=== PATIENT | male | born 1970 | race Caucasian/White ===

== ENCOUNTER 2021-03-27 16:27 | Outpatient (REF) | payer OTHER, SELFPAY ==
--- NOTE | ~2021-03-27 | XR_ITS ---
EXAMINATION: XR knee RT 4V CLINICAL INFORMATION: Reason for Exam PAIN COMPARISON: None available at the time of this dictation. TECHNIQUE: frontal, lateral, tunnel and patella sunrise views FINDINGS: BONES: No fracture or dislocation is present. JOINTS: Narrowing of joint spaces and developed osteophytes from the edges of articular surfaces suggest degenerative osteoarthritis. SOFT TISSUE: Normal XR/XR knee RT 4V IMPRESSION: Mild to moderate degenerative osteoarthritis involving primarily medial compartment.
== END 2021-03-27 16:28 | disposition home or self-care (01) ==
LOC: HO.XRAY 16:27
PROVIDERS: PCP Internal Medicine; Visit Provider Internal Medicine
DX: M25.561 Pain in right knee (principal)
CPT/HCPCS: 73564

== ENCOUNTER 2021-06-25 16:47 | Emergency (ER) | payer OTHER, SELFPAY ==
--- NOTE | ~2021-06-25 | XR_ITS ---
EXAMINATION: XR CHEST CLINICAL INFORMATION: Chest pain. COMPARISON: Chest radiograph dated 08/09/2018. TECHNIQUE: Frontal view of the chest was obtained. FINDINGS: The lungs are clear. The cardiomediastinal silhouette is normal in size. There is no pleural effusion or pneumothorax. No acute osseous abnormality. XR/XR chest 1V IMPRESSION: No acute cardiopulmonary findings.
[2021-06-25 16:51] VITALS: BP 150/96; PULSE 76; RESP 18; TEMP 36.7; O2SAT 99; BMI 35.9
--- NOTE | 2021-06-25 16:55 | ECG_ITS ---
Test Reason : CHEST PAIN Blood Pressure : / mmHG Vent. Rate : 078 BPM Atrial Rate : 078 BPM P-R Int : 176 ms QRS Dur : 094 ms QT Int : 364 ms P-R-T Axes : 049 033 038 degrees QTc Int : 414 ms Sinus rhythm with occasional Premature ventricular complexes Otherwise normal ECG When compared with ECG of 23-MAY-2015 06:43, Premature ventricular complexes are now Present Referred By: Generic ED Physician Electronically Signed By:CHARLES GRIJALVA
--- NOTE | 2021-06-25 18:17 | ED_ITS ---
HPI - Chest Pain General Chief Complaint: Chest Pain Stated Complaint: Chest pain Time Seen by Provider: 06/25/21 17:42 Source: patient Mode of arrival: ambulatory History of Present Illness HPI narrative: 50-year-old male significant past medical history presented to the ED brought in from PCP office for intermittent episodes of substernal chest pressure that began on Wednesday lasting 10-30 minutes with associated diaphoresis, pain/stiffness, and lightheadedness/dizziness when has pain. Admits was at PCPs office today pertaining to symptoms, and walked over by PCP due to concern, denies symptoms at present/today. Denies associated SOB, fever, cough, LE edema, recent travel, chills, abdominal pain, vomiting MD complaint: chest pain and chest discomfort Related Data Allergies Allergy/AdvReac Type Severity Reaction Status Date / Time No Known Allergies Allergy Unverified 07/04/20 16:09 [No Known Allergies*] Review of Systems Review of Systems: Constitutional: No Fever, No Chills, No Fatigue, No Malaise, + diaphoresis ENT/Mouth: No Ear Pain, No Nasal Congestion, No sore throat, No Rhinorrhea, No Swallowing Difficulty, + jaw stiffness/pain Eyes: No Eye Pain, No Vision Changes Cardiovascular: + Chest Pain, No SOB, No Dyspnea on Exertion, No Edema, No Palpitations Respiratory: No Cough, No Dyspnea Gastrointestinal: + Nausea, No Vomiting, No Diarrhea, No Constipation, No Abdominal pain Genitourinary: No Dysuria, No Urinary Frequency, No Hematuria,No Flank Pain Musculoskeletal: No joint pain, No Myalgias, No Joint Swelling Skin: No Skin Lesions, No rash Neuro: No Weakness, No Numbness, No Paresthesias, + Dizziness (when gets chest pain), No Headache Yes all other systems are reviewed and are negative [facility] Past Medical History Attestation statement: The following information was validated with the patient. Medical History (Updated 06/25/21 @ 20:37 by JACQUE Brady) No known health problems Social History Social History Advance Directives: No Advance Directives Information Provided: No Physical Exam Vital Signs: Vital Signs: Last Vital Signs Temp 98.5 F 06/25/21 19:28 Pulse 66 06/25/21 19:28 Resp 16 06/25/21 19:28 BP 132/86 06/25/21 19:28 Pulse Ox 98 06/25/21 19:28 Body Mass Index 35.9 Const: General: cooperative, healthy appearing and no acute distress Orientation/consciousness: patient oriented x3 Limitations: no limitations HENMT: Head: Yes normal to inspection Ears: hearing grossly normal bilaterally General nose exam: Normal external nose present Face and sinus: Yes normal facial exam Eyes: General: appearance normal, both eyes and all related structures EOM: EOMs intact bilaterally Neck: Neck: Yes normal visual inspection and Yes no meningeal signs Resp: Effort & Inspection: normal respiratory effort Auscultation: clear to auscultation bilaterally, no rales, no rhonchi and no wheezes Cardio: Rate: regular rate Heart sounds: S1 normal heart sound present and S2 normal heart sound present GI: Inspection: Yes normal to inspection Palpation (GI): Soft to palpation, nontender, no guarding and not rigid Skin: Rashes: no rashes Wounds: no wounds Neuro: General: patient oriented x3, tone normal and no meningeal signs Gait exam (Neuro): Normal gait present Extrem: General: Yes normal to inspection, Yes no pedal edema and Yes no calf tenderness Course Course Course Narrative: -2032--mild leukocytosis of 11.4, potassium elevated to 5.6 > Kayexalate given -troponin negative, labs otherwise unremarkable XR chest 1V IMPRESSION: No acute cardiopulmonary findings. > results discussed with patient, patient agreeable to take Kayexalate in the ED however would like to be discharged after taking, and will follow up for repeat blood work outpatient. Discussed worrisome signs and symptoms and strict return precautions. 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 On exam VSS, NAD/well-appearing, nontoxic, lungs CTA, abdomen soft/nontender, no pedal edema/calf tenderness. Concern for ACS. Symptoms atypical for PE/CHF or pneumonia. Plan: EKG, labs, CXR, reassess Medical Records Data Attestation: I reviewed the patient's medical records. Lab Data Attestation: I reviewed the patient's lab results. Result diagrams: 06/25/21 19:34 06/25/21 19:34 Labs: Lab Results 06/25/21 06/25/21 06/25/21 Range/Units 19:34 19:34 19:34 WBC 11.4 H (4.8-10.8) X10*3/uL RBC 4.70 (4.60-5.80) X10*6/uL Hgb 15.2 (14.0-18.0) g/dl Hct 44.7 (42-52) % MCV 95.1 (80-98) fL MCH 32.3 (27.0-33.0) pg MCHC 34.0 (31.0-36.0) g/dl RDW 12.7 (11.0-16.0) % Plt Count 307 (160-400) X10*3/uL MPV 9.1 L (9.4-12.4) fL Immature Gran % (Auto) 0.4 (0.0-0.4) % Neut % (Auto) 52.2 (45-73) % Lymph % (Auto) 37.9 (20-40) % Fountain % (Auto) 7.1 (2-11) % Eos % (Auto) 2.0 (0-4) % Baso % (Auto) 0.4 (0-2) % Lymph # (Auto) 4.3 (1.2-4.9) X10*3/uL Fountain # (Auto) 0.8 (0.1-1.2) X10*3/uL Eos # (Auto) 0.2 (0.0-0.4) X10*3/uL Baso # (Auto) 0.1 (0.0-0.2) X10*3/uL Abs Immat Gran (auto) 0.04 H (0.00-0.03) X10*3/uL Absolute Neuts (auto) 5.9 (2.0-8.3) X10*3/uL Absolute Nucleated RBC 0.000 (0.0-0.012) X10*3/uL Nucleated RBC % (auto) 0.0 (0.0-0.2) /100WBC Sodium 143 (135-145) mmol/L Potassium 5.6 H (3.3-5.1) mmol/L Chloride 110 H (96-108) mmol/L Carbon Dioxide 25 (22-29) mmol/L Anion Gap 14 (12-20) BUN 14 (9-16) mg/dL Creatinine 1.14 (0.5-1.4) mg/dL Estim Creat Clear Calc 102.6 Estimated GFR > 60 Random Glucose 97 (60-115) mg/dL Calcium 10.5 H (8.4-10.2) mg/dL Magnesium 2.2 (1.6-2.6) mg/dL Total Bilirubin 0.9 (0.0-1.0) mg/dL Direct Bilirubin 0.3 (0.0-0.5) mg/dL AST 14 (5-37) U/L ALT 28 (0-40) U/L Alkaline Phosphatase 87 (39-117) U/L Troponin I High Sens (<3.5-35.0) ng/L Total Protein 6.6 (6.5-8.0) g/dL Albumin 4.2 (3.5-5.0) g/dL 06/25/21 Range/Units 19:34 WBC (4.8-10.8) X10*3/uL RBC (4.60-5.80) X10*6/uL Hgb (14.0-18.0) g/dl Hct (42-52) % MCV (80-98) fL MCH (27.0-33.0) pg MCHC (31.0-36.0) g/dl RDW (11.0-16.0) % Plt Count (160-400) X10*3/uL MPV (9.4-12.4) fL Immature Gran % (Auto) (0.0-0.4) % Neut % (Auto) (45-73) % Lymph % (Auto) (20-40) % Fountain % (Auto) (2-11) % Eos % (Auto) (0-4) % Baso % (Auto) (0-2) % Lymph # (Auto) (1.2-4.9) X10*3/uL Fountain # (Auto) (0.1-1.2) X10*3/uL Eos # (Auto) (0.0-0.4) X10*3/uL Baso # (Auto) (0.0-0.2) X10*3/uL Abs Immat Gran (auto) (0.00-0.03) X10*3/uL Absolute Neuts (auto) (2.0-8.3) X10*3/uL Absolute Nucleated RBC (0.0-0.012) X10*3/uL Nucleated RBC % (auto) (0.0-0.2) /100WBC Sodium (135-145) mmol/L Potassium (3.3-5.1) mmol/L Chloride (96-108) mmol/L Carbon Dioxide (22-29) mmol/L Anion Gap (12-20) BUN (9-16) mg/dL Creatinine (0.5-1.4) mg/dL Estim Creat Clear Calc Estimated GFR Random Glucose (60-115) mg/dL Calcium (8.4-10.2) mg/dL Magnesium (1.6-2.6) mg/dL Total Bilirubin (0.0-1.0) mg/dL Direct Bilirubin (0.0-0.5) mg/dL AST (5-37) U/L ALT (0-40) U/L Alkaline Phosphatase (39-117) U/L Troponin I High Sens < 3.5 (<3.5-35.0) ng/L Total Protein (6.5-8.0) g/dL Albumin (3.5-5.0) g/dL ECG Data ECG #1: Attestation: I personally reviewed and interpreted this ECG as follows: ECG interpretation date: 06/25/21 ECG interpretation time: 17:00 Interpretation: EKG normal sinus rhythm with occasional PVCs. Rate of 78. No STEMI/nonischemic Discharge Plan Discharge Clinical Impression: Atypical chest pain, Acute hyperkalemia Patient Disposition: Home, Self-Care Instructions: Chest Pain (ED) Additional Instructions: Your blood work is reassuring however does show an elevation in your potassium You also need to follow-up with your primary care doctor for repeat blood work in the next 2-3 days for repeat potassium Make sure youre staying hydrated at home You need to follow-up with cardiology If your symptoms persist or worsen, become unbearable/constant, you develop shortness of breath, palpitations, or fever please return to the ED immediately Referrals: Maikol De Dios MD [Primary Care Provider] - 2 days Yemi Lora MD [Physician] - 5 days
[2021-06-25 19:28] VITALS: BP 132/86; PULSE 66; RESP 16; TEMP 36.9; O2SAT 98
--- NOTE | 2021-06-25 19:35 | PC.NURSE ---
PATIENT LABS WAS DRAWN BY THIS PCT .
[2021-06-25 19:41] LABS: Basophils Absolute Auto 0.1 X10*3/uL (0.0-0.2); Basophils Percent Auto 0.4 % (0-2); Eosinophils Absolute Auto 0.2 X10*3/uL (0.0-0.4); Hematocrit 44.7 % (42-52); Hemoglobin 15.2 g/dl (14.0-18.0); Imm Gran Abs Auto 0.04 X10*3/uL (0.00-0.03); Imm Gran Pct Auto 0.4 % (0.0-0.4); Lymphocytes Absolute Auto 4.3 X10*3/uL (1.2-4.9); Lymphocytes Percent Auto 37.9 % (20-40); MANUAL DIFF FLAG NO; Mean Corpuscular Hemoglobin 32.3 pg (27.0-33.0); Mean Corpuscular Volume 95.1 fL (80-98); Mean Platelet Volume 9.1 fL (9.4-12.4); Monocytes Absolute Auto 0.8 X10*3/uL (0.1-1.2); Monocytes Percent Auto 7.1 % (2-11); Neutrophils Absolute Auto 5.9 X10*3/uL (2.0-8.3); Neutrophils Percent Auto 52.2 % (45-73); Platelet Count 307 X10*3/uL (160-400); Red Cell Distribution Width 12.7 % (11.0-16.0); White Blood Count 11.4 X10*3/uL (4.8-10.8)
[2021-06-25 19:55] LABS: Magnesium 2.2 mg/dL (1.6-2.6)
[2021-06-25 19:57] LABS: Alanine Aminotransferase 28 U/L (0-40); Albumin Level 4.2 g/dL (3.5-5.0); Alkaline Phosphatase 87 U/L (39-117); Anion Gap 14 (12-20); Aspartate Amino Transferase 14 U/L (5-37); Bilirubin Direct 0.3 mg/dL (0.0-0.5); Bilirubin Total 0.9 mg/dL (0.0-1.0); Blood Urea Nitrogen 14 mg/dL (9-16); Calcium 10.5 mg/dL (8.4-10.2); Carbon Dioxide 25 mmol/L (22-29); Chloride 110 mmol/L (96-108); Creatinine Clr Calc Pharmacy 102.6; Estimated Glomerular Filt Rate > 60; Glucose Random 97 mg/dL (60-115); Potassium 5.6 mmol/L (3.3-5.1); Sodium 143 mmol/L (135-145); Total Protein 6.6 g/dL (6.5-8.0)
[2021-06-25 20:00] LABS: Troponin-I High Sensitivity < 3.5 ng/L (<3.5-35.0)
[2021-06-25] MEDS: Sodium Polystyrene Sulfon/Sorb 15 GM/60 ML ORAL.SUSP 45 GM PO (21:23)
--- NOTE | 2021-06-25 21:28 | PC.NURSE ---
Notified provider pt is willing to take po medication and go home to have labs out patient. Provider is aware.
[2021-06-25 21:42] VITALS: BP 125/86; PULSE 78; RESP 16; TEMP 36.6; O2SAT 98
[2021-06-25 21:49] VITALS: BP 129/73; PULSE 67; RESP 16; TEMP 36.7; O2SAT 99
== END 2021-06-25 22:18 | disposition home or self-care (01) ==
PROVIDERS: Physician Assistant; Emergency Provider Internal Medicine; PCP Internal Medicine
DX: R07.89 Other chest pain (principal); E87.5 Hyperkalemia; Z79.899 Other long term (current) drug therapy
CPT/HCPCS: 36415; 71045; 80048; 80076; 83735; 84484; 85025; 93005; 96360; 99284

== ENCOUNTER 2021-06-27 06:33 | Outpatient (REF) | payer OTHER, SELFPAY ==
[2021-06-27 11:58] LABS: Anion Gap 12 (12-20); Blood Urea Nitrogen 16 mg/dL (9-16); Calcium 10.3 mg/dL (8.4-10.2); Carbon Dioxide 24 mmol/L (22-29); Chloride 110 mmol/L (96-108); Estimated Glomerular Filt Rate > 60; Glucose Random 87 mg/dL (60-115); Potassium 4.3 mmol/L (3.3-5.1); Sodium 142 mmol/L (135-145)
== END 2021-06-27 06:34 | disposition home or self-care (01) ==
LOC: HO.HMGCLDS 06:33
PROVIDERS: PCP Internal Medicine; Visit Provider Internal Medicine
DX: Z00.00 Encounter for general adult medical examination without abnormal findings (principal)
CPT/HCPCS: 36415; 80048

== ENCOUNTER → 2021-07-02 12:50 | Outpatient (BNVA) | payer OTHER, SELFPAY | PROVIDERS: PCP Internal Medicine; Referring Provider Internal Medicine; Visit Provider Internal Medicine ==

== ENCOUNTER → 2021-08-06 09:30 | Outpatient (REF) | payer OTHER, SELFPAY ==
--- NOTE | 2021-08-06 09:34 | CA_ITS ---
Acquisition Time: 2021-08-06 10:27:43 Total Exercise Time: 00:07:59 Test Indications: Chest Pain Medications: NONE Protocol: CARLOS Max HR: 146 BPM 86% of Pred: 169 BPM Max BP: 162/084 mmHG Max Work Load: 10.3 METS Exercise stress test with exercise 7 min 59 sec of Carlos protocol, achieving 86% MPHR and 10.3 METs, with mild sob, no chest discomfort, without arrythmia, with normotensive response to exercise, without EKG changes meeting criteria for ischemia. Test reviewed with Dr Lora. Referred By: Yemi Lora Overread By: MADELYN ANDREA
--- NOTE | 2021-08-06 09:34 | CA_ITS ---
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 The calculated ejection fraction is 64% by biplane method. - No obvious valvular pathology seen on this study. Findings Left Ventricle Normal left ventricular cavity size. There is mildly increased left ventricular wall thickness. The left ventricular systolic function is normal. The calculated ejection fraction is 64% by biplane method. There is no evidence of regional wall motion abnormalities. Diastolic function is normal for age. Right Ventricle Normal right ventricular cavity size and systolic function. Atria Both atria are normal in size. Aortic Valve There is a normal trileaflet aortic valve. There is no aortic valve stenosis. There is no aortic valve regurgitation. Mitral Valve The mitral valve appears normal. There is no mitral valve regurgitation. There is no mitral valve stenosis. Pulmonic Valve The pulmonic valve was not well visualized. There is trace pulmonic valve regurgitation. Tricuspid Valve Normal tricuspid valve structure. There is trace tricuspid valve regurgitation. The pulmonary artery systolic pressure is normal. Great Vessels Top normal ascending aortic size at 4 cm. Venous The inferior vena cava is normal in size and collapses greater than 50% with inspiration. Pericardium/Pleural There is no evidence of pericardial effusion. Prior Study Comparison No prior study available for comparison. Recommendations, Care & Conclusions No obvious valvular pathology seen on this study. Measurements 2D Linear Measurements IVSd: 1.10 0.6-0.9/0.6-1.0 cm LVIDd: 4.68 3.9-5.3/4.2-5.9 cm LVIDd Index: 1.95 2.4-3.2/2.2-3.1 cm/m2 LVIDs: 3.31 2.0-3.6 cm LVPWd: 1.13 0.7-1.1 cm Ao Root: 3.70 2.1-3.5 cm LA Diam: 3.60 2.7-3.8/3.0-4.0 cm LAIDs Index: 1.50 1.5-2.3 cm/m2 LV Mass: 236.53 67-162/88-224 g LV Mass Index: 98.56 43-95/49-115 g/m2 LVOT Diam: 2.40 3.0+(-)1.3 cm 2D Systolic Function EF 4C: 52.80 >55% EF 2C: 71.30 >55% EF BiP: 63.60 >55% Mitral Valve MV Pk E: 0.52 MV PK A: 0.51 MV Decel Time: 162.00 E/A: 1.00 E'Lateral: 11.40 E'Medial: 5.55 E/E' Med: 9.40 E/E' Lat: 4.60 PHT: 48.00 MVA PHT: 4.58 Decel [place]: 3.21 Aortic Valve AoV Pk Balbir: 1.14 AoV Pk Grad: 5.00 LVOT LVOT Pk Balbir: 1.14 LVOT Mn Balbir: 0.81 LVOT VTI: 0.25 LVOT Pk Grad: 5.00 LVOT Mn Grad: 3.00 LVOT Diam: 2.40 LVOT Area: 4.52 Diastolic Function MV Pk E: 0.52 MV Pk A: 0.51 E/A: 1.00 E'Medial: 5.55 E/E' Med: 9.40 E' Laterial: 11.40 E/E' Lat: 4.60 Right Ventricle TAPSE (mm): 1.88 Tricuspid Valve RA Press: 3.00 Great Vessels Aorta Ao Root-2D: 3.70 2.0-3.7 cm Ao Asc: 4.00 2.1-3.4 cm Updated in Other Vendor System with Status of Final Yemi Lora MD electronically signed on 08/07/2021 11:30:42 AM with status of Final
== END ==
LOC: HO.CARD 09:30
PROVIDERS: PCP Internal Medicine; Visit Provider Internal Medicine
DX: R07.2 Precordial pain (principal)
CPT/HCPCS: 93017; 93306

== ENCOUNTER → 2021-08-12 12:40 | Outpatient (BNVA) | payer OTHER, SELFPAY | PROVIDERS: PCP Internal Medicine; Referring Provider Internal Medicine; Visit Provider Internal Medicine ==

== ENCOUNTER 2022-02-10 07:24 | Outpatient (REF) | payer OTHER, SELFPAY ==
--- NOTE | ~2022-02-10 | XR_ITS ---
EXAMINATION: XR KNEES, STANDING AP XR KNEE, RIGHT CLINICAL INFORMATION: Knee pain COMPARISON: Radiographs right knee 03/27/2021. TECHNIQUE: Standing AP view of both knees is performed along with lateral and axial patella views of the right knee. FINDINGS: Right: There is narrowing medial knee joint compartment with small osteophytes medial femoral condyle and medial tibial plateau. No erosive change or chondrocalcinosis. There is small to moderate suprapatellar effusion. Hoffa's fat pad appears normal. Axial view patella shows no definite lateralization or tilting. No fracture or dislocation or destructive process. Left: No definite joint narrowing. No erosive change or chondrocalcinosis. Normal bony mineralization. XR/XR knee standing BI IMPRESSION: Right: -Degenerative changes medial knee joint compartment. -Small to moderate suprapatellar effusion. Left: -No definite joint narrowing. No erosive change.
--- NOTE | ~2022-02-10 | XR_ITS ---
EXAMINATION: XR KNEES, STANDING AP XR KNEE, RIGHT CLINICAL INFORMATION: Knee pain COMPARISON: Radiographs right knee 03/27/2021. TECHNIQUE: Standing AP view of both knees is performed along with lateral and axial patella views of the right knee. FINDINGS: Right: There is narrowing medial knee joint compartment with small osteophytes medial femoral condyle and medial tibial plateau. No erosive change or chondrocalcinosis. There is small to moderate suprapatellar effusion. Hoffa's fat pad appears normal. Axial view patella shows no definite lateralization or tilting. No fracture or dislocation or destructive process. Left: No definite joint narrowing. No erosive change or chondrocalcinosis. Normal bony mineralization. XR/XR knee RT 2V IMPRESSION: Right: -Degenerative changes medial knee joint compartment. -Small to moderate suprapatellar effusion. Left: -No definite joint narrowing. No erosive change.
== END 2022-02-10 07:25 | disposition home or self-care (01) ==
LOC: HO.HOSX 07:24
PROVIDERS: Visit Provider Physician Assistant
DX: M17.11 Unilateral primary osteoarthritis, right knee (principal)
CPT/HCPCS: 73560; 73565; J1040

== ENCOUNTER 2022-02-25 15:22 | Outpatient (REF) | payer OTHER, SELFPAY ==
--- NOTE | ~2022-02-25 | XR_ITS ---
EXAMINATION: XR CHEST CLINICAL INFORMATION: Cough. Rule out pneumonia. COMPARISON: 06/25/2021 and 08/09/2018. TECHNIQUE: 2 views of the chest were obtained. FINDINGS: There is no evidence of acute parenchymal disease, pneumothorax, or pleural effusion. Heart normal size. No evidence of pulmonary edema. On one AP view there is a question of retrocardiac density however on the second image this is shown to have been superimposition of structures and not a true region of consolidation. XR/XR chest 2V IMPRESSION: No acute disease.
[2022-02-25 16:27] LABS: Influenza A PCR POSITIVE (Negative); Influenza B PCR NEGATIVE (Negative); Resp Syncy Virus RNA Qual PCR NEGATIVE (Negative); SARS COV2 PCR INHOUSE NEGATIVE (Negative)
== END 2022-02-25 15:23 | disposition home or self-care (01) ==
LOC: HO.XRAY 15:22
PROVIDERS: PCP Internal Medicine; Visit Provider Internal Medicine
DX: Z20.822 Contact with and (suspected) exposure to COVID-19 (principal); R05.9 Cough, unspecified
CPT/HCPCS: 0241U; 71046

== ENCOUNTER 2023-03-12 06:39 | Outpatient (REF) | payer BC, SELFPAY ==
[2023-03-12 06:51] LABS: MANUAL DIFF FLAG NO
[2023-03-12 07:25] LABS: Basophils Absolute Auto 0.1 X10*3/uL (0.0-0.2); Basophils Percent Auto 0.8 % (0-2); Eosinophils Absolute Auto 0.2 X10*3/uL (0.0-0.4); Eosinophils Percent Auto 1.9 % (0-4); Hematocrit 48.1 % (42.0-52.0); Hemoglobin 16.1 g/dl (14.0-18.0); Imm Gran Abs Auto 0.05 X10*3/uL (0.00-0.03); Imm Gran Pct Auto 0.5 % (0.0-0.4); Lymphocytes Absolute Auto 4.1 X10*3/uL (1.2-4.9); Lymphocytes Percent Auto 39.9 % (20-40); Mean Corpuscular HGB Conc 33.5 g/dl (31.0-36.0); Mean Corpuscular Hemoglobin 31.7 pg (27.0-33.0); Mean Corpuscular Volume 94.7 fL (80.0-98.0); Mean Platelet Volume 8.9 fL (9.4-12.4); Monocytes Absolute Auto 0.8 X10*3/uL (0.1-1.2); Monocytes Percent Auto 7.4 % (2-11); Neutrophils Absolute Auto 5.1 x10*3/uL (2.0-8.3); Neutrophils Percent Auto 49.5 % (45-73); Platelet Count 322 X10*3/uL (160-400); Red Blood Count 5.08 X10*6/uL (4.60-5.80); Red Cell Distribution Width 12.2 % (11.0-16.0); White Blood Count 10.2 X10*3/uL (4.8-10.8)
[2023-03-12 08:08] LABS: Alanine Aminotransferase 49 U/L (0-40); Albumin Level 4.1 g/dL (3.5-5.0); Alkaline Phosphatase 108 U/L (39-117); Anion Gap 11 (12-20); Aspartate Amino Transferase 19 U/L (5-37); Bilirubin Total 0.7 mg/dL (0.0-1.0); Blood Urea Nitrogen 17 mg/dL (9-16); Calcium 10.1 mg/dL (8.4-10.2); Carbon Dioxide 28 mmol/L (22-29); Chloride 108 mmol/L (96-108); Cholesterol 204 mg/dL; Estimated Glomerular Filt Rate > 60; Glucose Fasting 95 mg/dL (60-99); HDL Cholesterol 37 mg/dL; LDL Cholesterol Calculated 123 mg/dl; Potassium 5.1 mmol/L (3.3-5.1); Sodium 142 mmol/L (135-145); Total Protein 6.6 g/dL (6.5-8.0); Triglycerides 224 mg/dL
[2023-03-12 08:11] LABS: Prostate Specific Antigen 0.33 ng/mL (<0.05-4.0)
[2023-03-12 08:54] LABS: Appearance Urine Clear; Color Urine Yellow; Glucose Urine UA Negative (Negative); Leukocyte Esterase Urine Trace (Negative); Nitrite Urine Negative (Negative); PH 5.5 (5.0-9.0); Specific Gravity - Urine 1.025 (1.005-1.025); UMIC TRIGGER UA YES; Urine Blood Negative (Negative); Urine Ketones Negative (Negative); Urine Protein Negative (Neg-Trace)
[2023-03-12 09:02] LABS: Bacteria Urine 1+ (None Seen); Hyaline Casts Urine 0-2 /LPF (0-2); RBC Urine 0-2 /HPF (0-2); WBC Urine 0-5 /HPF (0-5)
== END 2023-03-12 06:40 | disposition home or self-care (01) ==
LOC: HO.LAB 06:39
PROVIDERS: PCP Internal Medicine; Visit Provider Internal Medicine
DX: I10 Essential (primary) hypertension (principal); R00.2 Palpitations; R31.9 Hematuria, unspecified; Z12.5 Encounter for screening for malignant neoplasm of prostate
CPT/HCPCS: 36415; 80053; 80061; 81001; 84153; 85025

== ENCOUNTER 2023-07-02 14:46 | Outpatient (AMB) | payer OTHER, SELFPAY ==
--- NOTE | 2023-07-02 08:51 | MHC.OFFVIS ---
Intake Intake Visit Reasons: LDCT SD Allergies No Known Allergies [No Known Allergies*] Allergy (Verified 08/12/21 12:50) HPI LDCT SD HPI Details Initial visit for this 52yo smoker with a 50PYH. Patient has been smoking since age 11 for 41 years. Max 1.5ppd now at 1ppd. . Denies marijuana use. Notes social second hand smoke exposure. Denies exposure to chemicals or substances like asbestos. . Denies known family history of lung cancer. Denies personal history of cancers. . Denies chest CT in last year. Prior chest CT done 01/30/15 noted numerous stable nodules . Denies recent travel outside the [place]. Denies recent respiratory illness or recent hospitalization for respiratory issues. Reports testing positive for COVID 2 years ago. Admits receiving COVID Vaccine. x 3. . Denies fever, chills, new/worsening cough, hemoptysis, hoarseness or dysphagia. Denies significant chest pain, significant dyspnea or unintentional weight loss. Patient Lung Cancer Screening Questionnaire reviewed with patient by provider. . Shared Decision Making Completed. Patient meets criteria. Discussed in detail with patient, the risk vs benefit of LDCT screening. Patient consents to proceed with scan. Discussed smoking cessation. [facility] Medical History (Updated 07/02/23 @ 14:59 by Grace Xiao PA-C) Obesity Tubular adenoma of colon Nicotine dependence, cigarettes, uncomplicated Surgical History (Updated 07/02/23 @ 15:01 by Grace Xiao PA-C) History of cystoscopy History of surgery on left wrist History of endoscopy History of colonoscopy History of repair of hiatal hernia Family History Father No problems noted. Mother No problems noted. 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 - Patient meets criteria for LDCT for lung cancer screening purposes and is asymptomatic. - Smoking cessation counseling offered. Patients can always call [phone]. - Will arrange for a LDCT scan of the chest for screening purposes at [facility]. - Risks, benefits, and alternatives were discussed in detail and the patient agrees to proceed. - Risks discussed include but are not limited to: radiation exposure, anxiety during testing and while awaiting results, false negatives, false positives and possibility of additional intervention such as further imaging or surgical procedures for benign disease. - Benefits are obviously detection of lung cancer at an early stage which can lead to improved outcomes. - Discussed the importance of screening program compliance with adherence to yearly LDCT scan as scheduled - or sooner interval scans for personalized screening regimen. - Discussed follow up plan. Our office will send a letter discussing results and if needed set up phone call and office visit based on CT findings. - Patient educated on results categorization and the management decisions for suspicious findings potentially found on the screening LDCT scan. Any patient with a Lung RADS score of 3 or 4 will be reviewed by a multidisciplinary team at [facility] to form a plan of action in regards to scan findings. - If further work up is warranted for a suspicious lung finding this will be followed by the Lung Cancer Screening program in conjunction with the Thoracic Surgery Department at [facility]. - A copy of the office note and LDCT will be sent to the patient's PCP - as well as documentation on any associated further plans of care. - Incidental findings on LDCT are the PCP's responsibility. These findings are indicated with an S finding on the LDCT Assessment. A note discussing the findings will be sent to the PCP who is then responsible for further management. - All questions answered.? Coding Level of Care Code Lung Cancer Screening [id number] Diagnoses Nicotine dependence, cigarettes, uncomplicated F17.210
== END 2023-07-02 15:04 | disposition home or self-care (01) ==
PROVIDERS: PCP Internal Medicine; Visit Provider Physician Assistant Medical
DX: F17.210 Nicotine dependence, cigarettes, uncomplicated (principal)
CPT/HCPCS: G0296

== ENCOUNTER 2023-07-02 15:06 | Outpatient (REF) | payer OTHER, SELFPAY ==
--- NOTE | ~2023-07-02 | CT_ITS ---
EXAMINATION: CT CHEST SCREENING CLINICAL INFORMATION: Current smoker. 41 pack year history. COMPARISON: Previous chest CT January 2015 TECHNIQUE: Multidetector volumetric CT imaging of the chest is performed without contrast using low dose technique. Additional 2D coronal and sagittal reformatted images and axial 3D maximum intensity projection (MIP) images are generated on the CT workstation. This CT examination was performed using dose optimization techniques as appropriate, variously including the following: *Automated exposure control *Adjustment of mA and/or kV according to patient size (this includes techniques or standardized protocols for targeted exams where dose is matched to indication/reason for exam; i.e. extremities or head) *Use of iterative reconstruction technique DLP: 122 mGy-cm FINDINGS: LUNGS: Mild paraseptal emphysema. 3 mm right upper lobe nodule axial image 117 series 6. 3 mm right upper lobe nodule axial image 119 series 6. 4 mm peripheral or subpleural right upper lobe nodule adjacent to the major fissure axial image 237 series 6. 1 cm peripheral or subpleural right lower lobe nodule adjacent to the major fissure axial image 249 series 6. 4 mm left upper lobe nodule axial image 273 series 6. 5 mm right middle lobe nodule adjacent to the minor fissure axial image 285 series 6. 4 mm right middle lobe nodule axial image 301 series 6. 4 mm left lower lobe nodule axial image 309 and 313 series 6. 3 mm peripheral or subpleural right lower lobe nodule axial image 323 series 6. 3 mm peripheral or subpleural right middle lobe nodule axial image 346 series 6. These are all stable from [address] No endobronchial or endotracheal lesion. MEDIASTINUM: The mediastinum is normal. CORONARY ARTERY CALCIFICATION: None visualized on this study. PLEURA: There is no pleural effusion. No pleural mass or thickening. AXILLA: No lymphadenopathy. UPPER ABDOMEN: Unremarkable OSSEOUS STRUCTURES: Unremarkable. CT/CT lung screening IMPRESSION: Mild emphysema. Stable pulmonary nodules from [address] ASSESSMENT: Lung-RADS category 2: Benign RECOMMENDATION: Annual low-dose chest CT follow-up recommended.
== END 2023-07-02 15:07 | disposition home or self-care (01) ==
LOC: HO.CT 15:06
PROVIDERS: Visit Provider Physician Assistant Medical
DX: Z12.2 Encounter for screening for malignant neoplasm of respiratory organs (principal); F17.210 Nicotine dependence, cigarettes, uncomplicated
CPT/HCPCS: 71271; G0296

== ENCOUNTER 2025-03-14 11:32 | Outpatient (AMB) | payer OTHER, SELFPAY ==
--- NOTE | 2025-03-14 10:20 | MHC.PC.OV ---
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 Required: No Accompanied by: Self / Same As Patient Allergies No Known Allergies [No Known Allergies*] Allergy (Verified 03/14/25 11:39) Medication List - Last Reconciled 03/14/25 by Pradeep Loco MD No Known Home Meds Tobacco use date assessed: 03/14/25 Dental Screening Dental Screen Date: 03/14/25 Did you have a dental visit in the last 12 months?: Yes Did you have a dental problem in the last 6 months where you did not have access to dental care?: No [facility] Medical History Obesity Tubular adenoma of colon Nicotine dependence, cigarettes, uncomplicated Surgical History History of cystoscopy History of surgery on left wrist History of endoscopy History of colonoscopy (~10/05/18) History of repair of hiatal hernia Family History Father No problems noted. Mother No problems noted. 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 1. Little interest or pleasure in doing things: not at all 2. Feeling down, depressed, or hopeless: not at all 3. Trouble falling or staying asleep, or sleeping too much: not at all 4. Feeling tired or having little energy: not at all 5. Poor appetite or overeating: not at all 6. Feeling bad about yourself - or that you are a failure or have let yourself or your family down: not at all 7. Trouble concentrating on things, such as reading the newspaper or watching television: not at all 8. Moving or speaking so slowly that other people could have noticed. Or the opposite - being so fidgety or restless that you have been moving around a lot more than usual: not at all 9. Thoughts that you would be better off or of hurting yourself in some way: not at all Total score: 0 Depression Screening Interpretation: Negative Depression Screening Done: Yes Source: Developed by Drs. Anatoly Carvalho, Myra Tiwari, Alireza Sexton and colleagues, with an educational david from [employer]. Thrive Questionnaire Date Thrive assessed: 03/14/25 I am a: Patient Within the past 12 months, did the food you bought not last and you didn't have the money to get more?: Never true Within the past 12 months, did you worry whether your food would run out before you got money to buy more?: Never true Do you have trouble paying for medicines?: No Do you have trouble getting transportation to medical appointments?: No Do you have trouble paying your heating and electricity bill?: No Do you have trouble taking care of your child, family member or friend?: No Do you have trouble with day-to-day activities such as bathing, preparing meals, shopping, managing finances, etc.?: No Are you currently unemployed and looking for a job?: No Are you interested in more education?: No Currently or been in a relationship where the following occur: No concerns reported THRIVE Score: 0 AUDIT C Alcohol Use Questionnaire (AUDIT-C) 1. How often do you have a drink containing alcohol?: Monthly or less 2. How many drinks containing alcohol do you have on a typical day when you are drinking?: 1 or 2 3. How often do you have six or more drinks on one occasion?: Less than monthly Total Score: 2 LEÓN-7 AMB Questionnaire LEÓN-7 Date LEÓN - 7 assessed: 03/14/25 Feeling nervous, anxious, or on edge: 0 = Not at all Not being able to stop or control worryin = Not at all Worrying too much about different things: 0 = Not at all Trouble relaxin = Not at all Being so restless that it is hard to sit still: 0 = Not at all Becoming easily annoyed or irritable: 0 = Not at all Feeling afraid as if something awful might happen: 0 = Not at all Total LEÓN-7 score (0-4 normal; 5-9 mild; 10-14 moderate; 15-21 severe): 0 Source: Developed by Drs. Anatoly Carvalho, Myra Tiwari, Alireza Sexton and colleagues, with an educational david from [employer]. Physical exam (Primary Care) Vital Signs: Last Vital Signs Temp 97.2 F 03/14/25 11:36 Pulse 93 03/14/25 11:36 BP 130/80 03/14/25 11:36 Pulse Ox 98 03/14/25 11:36 Oxygen Delivery Method Room Air 03/14/25 11:36 Care Plan Goal for BP management: BP is in range BMI result Body Mass Index 37.4 BMI Assessment/Plan discussion: High (One pound per week weight loss suggested.) BMI High, discussed plan: lifestyle, weight reduction and dietary Tobacco/Smoking Status: Tobacco use Status Tobacco use date assessed 03/14/25 03/14/25 11:41 Patient Tobacco Use Status Current everyday Tobacco 03/14/25 10:20 e-Cigarette/Vaping Use Currently Using 03/14/25 11:41 Are you ready to quit: No Tobacco cessation counseling provided: No PHQ-9: PHQ-9 Score PHQ-9: Total score 0 03/14/25 11:57 Depression Screening Interpretation: Negative Thrive Assessment: Date of Thrive Assessment Date Thrive assessed 03/14/25 03/14/25 11:41 Currently or been in a relationship where the following occur: No concerns reported Coding Level of Care Code New Pt Level 4 (41763) Complex EM visit Add On G2211 Diagnoses Obesity E66.9 Assessment & Plan Assessment & Plan (1) Obesity: Code(s): E66.9 - Obesity, unspecified Category: Medical Plan: Counselling on importance of diet and exercise. Plan History of Present Illness - The patient is a 54-year-old male presenting with concerns about hair loss. - Reports hair loss began approximately three months ago, primarily affecting a large bald spot on the back of the head. - No prior treatment has been undertaken. - The patient is requesting a referral for a colonoscopy. - Has not had a colonoscopy in several years and is due for another. - Prefers Dr. Hebert for the procedure. 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 - Substance Use: Smokes one pack of cigarettes daily; consumes alcohol once a week, primarily on Wednesday nights. - Mental Health: Patient reports feeling stressed regularly, with no significant mental stressors noted beyond normal day-to-day stress. - Sleep: Reports issues with sleeping at night. Review of Systems - Dermatologic: Reports hair loss, specifically bald spots developing over the past three months. - Ophthalmologic: Reports difficulty with reading and sometimes while driving; plans to see an eye doctor. - Gastrointestinal: Denies any abdominal pain. - Neurologic: Denies any unusual stress beyond regular day-to-day activities. - Respiratory: Denies any current respiratory symptoms but acknowledges past history of smoking. Physical Exam General: Cooperative and healthy appearing Nutritional Appearance: Well nourished Orientation/consciousness: Patient oriented x3 Limitations: No limitations Head: Normal to inspection General: Appearance normal, both eyes and all related structures Neck: Normal visual inspection Chest: Normal palpation of entire chest wall Respiratory: Smokes every day, pack a day ormal respiratory effort Neurology: Patient oriented x3 Results - Imaging: Patient recalls having a prior CT scan but details and results were not discussed. Plan 1. Alopecia Areata - Discussed the potential stress-related cause of hair loss. - Offered a referral to a religious assistant for possible steroid treatment, which the patient declined. - Advised that the condition often improves without intervention. 2. Tobacco Use Disorder - Discussed risks associated with smoking and encouraged cessation. - Offered support and resources for smoking cessation when the patient is ready. - Patient is aware of the health risks and expresses difficulty in quitting. Discussion Notes I discussed with the patient the likely stress-related cause of his alopecia areata and reassured him that the condition often resolves on its own. I offered a referral to a religious assistant for steroid injections if desired, but the patient declined. We also discussed his tobacco use, and I emphasized the health risks of smoking. I offered support and resources for smoking cessation, explaining that I would assist him whenever he decided to quit. For his referral, I will send it to Dr. Hebert for a colonoscopy as requested. I also noted that he should undergo fasting blood work as part of routine care. Patient Instructions - Follow up with Dr. Hebert for the scheduled colonoscopy. - Complete the fasting blood work as ordered. - Consider seeing a religious assistant if the hair loss does not improve. - Reduce smoking and consider quitting; I'm here to help when you're ready. - Continue routine eye care and schedule a visit with an eye doctor for vision concerns. Orders: Orders Lipid Panel Today E66.9 - Obesity, unspecified Liver Panel Today E66.9 - Obesity, unspecified Basic Metabolic Panel Today E66.9 - Obesity, unspecified Complete Blood Count no Diff Today E66.9 - Obesity, unspecified Thyroid Stimulating Hormone Today E66.9 - Obesity, unspecified UA and rflx microscopic Today E66.9 - Obesity, unspecified Referrals Gastroenterology Referral Z12.11 - Encounter for screening for malignant neoplasm of colon
[2025-03-14 11:36] VITALS: BP 130/80; PULSE 93; TEMP 36.2; O2SAT 98; BMI 37.4
== END 2025-03-14 11:58 | disposition home or self-care (01) ==
LOC: HO.HMCHD 11:32
PROVIDERS: PCP Internal Medicine; Visit Provider Internal Medicine
DX: E66.9 Obesity, unspecified (principal)

== ENCOUNTER → 2025-03-14 11:32 | Outpatient (BNVA) | payer OTHER, SELFPAY | PROVIDERS: PCP Internal Medicine; Visit Provider Internal Medicine ==

== ENCOUNTER 2025-03-20 06:06 | Outpatient (REF) | payer OTHER, SELFPAY ==
[2025-03-20 07:27] LABS: Hematocrit 48.2 % (42.0-52.0); Hemoglobin 16.1 g/dl (14.0-18.0); Mean Corpuscular HGB Conc 33.4 g/dl (31.0-36.0); Mean Corpuscular Hemoglobin 31.6 pg (27.0-33.0); Mean Corpuscular Volume 94.5 fL (80.0-98.0); Mean Platelet Volume 9.2 fL (9.4-12.4); Platelet Count 313 X10*3/uL (160-400); Red Cell Distribution Width 12.4 % (11.0-16.0); White Blood Count 8.2 X10*3/uL (4.8-10.8)
[2025-03-20 07:37] LABS: Appearance Urine Cloudy; Color Urine Yellow; Glucose Urine UA Negative (Negative); Leukocyte Esterase Urine Negative (Negative); Nitrite Urine Negative (Negative); PH 5.5 (5.0-9.0); Specific Gravity - Urine 1.025 (1.005-1.025); Urine Blood Negative (Negative); Urine Ketones Negative (Negative); Urine Protein Negative (Neg-Trace)
[2025-03-20 07:52] LABS: Alanine Aminotransferase 56 U/L (0-40); Albumin Level 4.2 g/dL (3.5-5.0); Alkaline Phosphatase 110 U/L (39-117); Anion Gap 10 (12-20); Aspartate Amino Transferase 27 U/L (5-37); Bilirubin Direct 0.2 mg/dL (0.0-0.5); Bilirubin Total 0.6 mg/dL (0.0-1.0); Blood Urea Nitrogen 15 mg/dL (9-16); Calcium 10.1 mg/dL (8.4-10.2); Carbon Dioxide 28 mmol/L (22-29); Chloride 110 mmol/L (96-108); Cholesterol 175 mg/dL (<200); Estimated Glomerular Filt Rate > 60; Glucose Random 97 mg/dL (60-115); HDL Cholesterol 36 mg/dL (>40); LDL Cholesterol Calculated 113 mg/dL (<100); Sodium 143 mmol/L (135-145); Total Protein 6.9 g/dL (6.5-8.0); Triglycerides 130 mg/dL (<150)
[2025-03-20 08:18] LABS: Thyroid Stimulating Hormone 1.72 uIU/mL (0.32-4.0)
== END 2025-03-20 06:07 | disposition home or self-care (01) ==
LOC: HO.LAB 06:06
PROVIDERS: PCP Internal Medicine; Visit Provider Internal Medicine
DX: E66.9 Obesity, unspecified (principal)
CPT/HCPCS: 36415; 80048; 80061; 80076; 81003; 84443; 85027

== ENCOUNTER 2025-09-10 08:21 | Day surgery (SDC) | payer OTHER, SELFPAY ==
--- NOTE | 2025-09-05 14:00 | HO.ANESPROP2 ---
Documented by User: Fior Bobby NP 09/05/25 14:00 HPI - Anesthesia Eval Consult details Narrative: 54yo M for Colonoscopy PMFSH Active Problems Active Problems: All Active Problems Precordial chest pain (Acute) Nicotine dependence, cigarettes, uncomplicated (Acute) Obesity (Acute) Tubular adenoma of colon (Acute) Osteoarthritis of right knee (Acute) Past Medical History Medical History Obesity Tubular adenoma of colon Nicotine dependence, cigarettes, uncomplicated Family History Family History Father No problems noted. Mother No problems noted. Surgical History Surgical History History of cystoscopy History of surgery on left wrist History of endoscopy History of colonoscopy (~10/05/18) History of repair of hiatal hernia Social History Social History Housing: House Patient Tobacco Use Status: Current everyday Tobacco user Tobacco use type: Cigarette Cigarette Packs Per Day: 1 Cigarettes Per Day: 20.0 Years Smoked: (onset 11yo, 1-1.5ppd x 41yrs, 50pyh) e-Cigarette/Vaping Use: Currently Using Use of substances other than those prescribed or required for medical reasons: No Are you DNR?: No Advance Directives: No Advance Directives Information Provided: Yes service: No Current occupational status: employed 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 Cognitive needs: No Vision needs: Yes (reading glasses) Meds Allergies Allergy/AdvReac Type Severity Reaction Status Date / Time No Known Allergies (No Known Allergy Verified 09/05/25 09:56 Allergies*) Home Medications ?Medication ?Instructions ?Recorded ?Confirmed ?Last Taken ?Type No Known Home Meds 09/10/25 09/10/25 Unknown History Assessment and Plan Assessment Anesthesia Assessment: Chart Reviewed Documented by User: Ben Rod MD 09/10/25 09:22 [facility] Past Medical History Medical History Obesity Tubular adenoma of colon Nicotine dependence, cigarettes, uncomplicated Cognitive capacity: normal Functional capacity: independent ambulation Family History Family History Father No problems noted. Mother No problems noted. Family history of problems with anesthesia: No Surgical History Surgical History History of cystoscopy History of surgery on left wrist History of endoscopy History of colonoscopy (~10/05/18) History of repair of hiatal hernia History of Problems with Anesthesia: Yes Social History Social History Housing: House Patient Tobacco Use Status: Current everyday Tobacco user Tobacco use type: Cigarette Cigarette Packs Per Day: 1 Cigarettes Per Day: 20.0 Years Smoked: (onset 11yo, 1-1.5ppd x 41yrs, 50pyh) e-Cigarette/Vaping Use: Currently Using Use of substances other than those prescribed or required for medical reasons: No Are you DNR?: No Advance Directives: No Advance Directives Information Provided: Yes service: No Current occupational status: employed 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 Discussed Final Anesthetic Review Family History of Problems with Anesthesia: No History of Problems with Anesthesia: Yes NPO: Yes ASA Class: II Final Preanesthetic Review: No Changes in Pt Med Stat, Meds/Allgs Chart Reviewed, Consent Obtained/Reviewed and Anes Risks/Benef Reviewed Patient Risk: Low Procedure Risk: Low Anesthetic Plan Anesthetic Plan: MAC: Disposition: Standard PACU
[2025-09-10 08:32] VITALS: BMI 35.8
[2025-09-10 08:33] VITALS: BP 154/87; PULSE 86; RESP 16; TEMP 36.1; O2SAT 100
[2025-09-10] MEDS: Lactated Ringers 1,000 ML 100 ML IVCONT (08:51)
[2025-09-10 11:02] VITALS: BP 111/65; PULSE 73; RESP 18; TEMP 36.1; O2SAT 98
[2025-09-10 11:05] VITALS: BP 114/69; PULSE 75; RESP 16; TEMP 36.1; O2SAT 95
--- NOTE | 2025-09-10 11:07 | P.BOP_ITS ---
Brief Operative Note Date of Service: 09/10/25 Pre-op diagnosis: Screening Post-op diagnosis: other (Colon polyps) Procedure: Colonoscopy to the cecum and TI with hot snare polypectomy at 30cm, and cold snare polypectomy at 40cm and at 60cm Surgeon: Anatoly Hebert MD Anesthesia: MAC Was an Tank Storage Supervisor used for this Procedure?: No Estimated blood loss (mL): 2.0 Pathology: other (A. Polyp at 60cm B. Polyp at 40cm C. Polyp at 30cm) Condition: stable Disposition: PACU
--- NOTE | 2025-09-10 20:56 | OP_ITS ---
DATE OF SERVICE: 09/10/2025 SURGEON: Anatoly Hebert MD INDICATIONS: The patient presents for evaluation of colorectal cancer screening and history of tubular adenoma of the colon. Full consent has been obtained from him for this, including risks of bleeding and perforation. PREOPERATIVE DIAGNOSIS: POSTOPERATIVE DIAGNOSIS: PROCEDURE PERFORMED: ESTIMATED BLOOD LOSS: COMPLICATIONS: ANESTHESIA: Medication used, monitored anesthesia care. ASSISTANTS: SPECIMENS: PREOPERATIVE DIAGNOSES: Colorectal cancer screening and history of tubular adenoma of the colon. POSTOPERATIVE DIAGNOSES: Colorectal cancer screening and history of tubular adenoma of the colon, colon polyps, diverticulosis, and internal hemorrhoids. PROCEDURES PERFORMED: Colonoscopy to cecum and terminal ileum with cold snare polypectomy x2 and hot snare polypectomy. DESCRIPTION OF PROCEDURE: The patient was placed in the left lateral decubitus position. The digital rectal exam revealed no abnormalities. The Olympus video pediatric colonoscope was entered into the rectum and advanced easily to the cecum. Once in the cecum, I did identify normal-appearing cecal pouch with appendiceal orifice and a normal-appearing ileocecal valve. The terminal ileum was cannulated and appeared normal. The scope was withdrawn back into the colon. The entire cecum and ileocecal valve appeared normal. The scope was slowly withdrawn assessing all mucosal surfaces carefully. Preparation was excellent. At 60 cm was an approximately 6 mm polyp, which was removed by cold snare polypectomy, recovered by suction. At 40 cm was a similar polyp, also removed by cold snare polypectomy and recovered by suction. Both polypectomy sites appeared clean, without any sign of residual polyp nor significant bleeding. At 30 cm was an approximately 8 mm polyp on a short stalk, which was removed by hot snare polypectomy and recovered by suction. The polypectomy site appeared clean, without any sign of residual polyp nor bleeding. I did not visualize any other polyps, colitis, nor angiodysplasia. There was a mild amount of sigmoid diverticulosis. In the rectum, scope was retroflexed visualizing internal hemorrhoids, but no other pathology. The rectal mucosa appeared normal. The scope was straightened and withdrawn from the patient. He tolerated the procedure well and was returned to the recovery area in stable condition. IMPRESSION: 1. Colon polyps. 2. Diverticulosis. 3. Internal hemorrhoids. PLAN: The results of the pathology will be checked. I would recommend a repeat colonoscopy in 5 years for further screening. He was advised not to use any aspirin or NSAIDs for 1 week. MD ADI Kang/VICTOR MANUEL / [id number] DANIELLA
== END 2025-09-10 11:25 | disposition home or self-care (01) ==
PROVIDERS: PCP Physician Assistant Medical; Visit Provider Internal Medicine
PROC: 0DJD8ZZ Inspection of Lower Intestinal Tract, Via Natural or Artificial Opening Endoscopic (ICD-10-PCS; CPT 45378; principal; 2025-09-10 09:40)
DX: Z12.11 Encounter for screening for malignant neoplasm of colon (principal); Z86.0101 Personal history of adenomatous and serrated colon polyps; Z83.719 Family history of colon polyps, unspecified; D12.4 Benign neoplasm of descending colon; D12.5 Benign neoplasm of sigmoid colon; K57.30 Diverticulosis of large intestine without perforation or abscess without bleeding; K64.8 Other hemorrhoids; K44.9 Diaphragmatic hernia without obstruction or gangrene; K22.70 Barrett's esophagus without dysplasia; K21.9 Gastro-esophageal reflux disease without esophagitis; F17.210 Nicotine dependence, cigarettes, uncomplicated; Z79.899 Other long term (current) drug therapy; Z98.890 Other specified postprocedural states
CPT/HCPCS: 45385; 88305; J2003; J2704; J3010